=== PATIENT | female | born 1960 | race Caucasian/White ===

== ENCOUNTER 2020-12-07 10:24 | Emergency (ER) | payer OTHER, SELFPAY ==
[2020-12-07 10:58] VITALS: BP 137/80; PULSE 72; RESP 18; TEMP 36.8; O2SAT 100
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
[2020-12-07 12:40] VITALS: BP 137/80; PULSE 72; RESP 18; O2SAT 100
== END 2020-12-07 12:39 | disposition home or self-care (01) ==
PROVIDERS: Emergency Provider Physician Assistant
DX: S09.8XXA Other specified injuries of head, initial encounter (principal); W22.8XXA Striking against or struck by other objects, initial encounter
CPT/HCPCS: 99284; 70450; 99283